=== PATIENT | male | born 1980 | race Caucasian/White ===

== ENCOUNTER 2018-11-29 08:30 | Emergency (ER) | payer SELFPAY ==
[~2018-11-29] VITALS: Ht 175.3 cm; Wt 95.5 kg
[2018-11-29 09:16] VITALS: BP 148/81
== END 2018-11-29 09:32 | disposition home or self-care (01) ==
LOC: EMS 08:34
DX: R19.7 Diarrhea, unspecified (principal); R11.0 Nausea; F17.210 Nicotine dependence, cigarettes, uncomplicated
CPT/HCPCS: 99406